=== PATIENT | female | born 1935 | race Caucasian/White ===

== ENCOUNTER 2016-12-15 17:24 | Emergency (ER) | payer MEDICARE, MEDICAID ==
[~2016-12-15] VITALS: Ht 172.7 cm; Wt 75.0 kg
[2016-12-15 17:27] VITALS: BP 159/77; PULSE 81; RESP 16; TEMP 98.2; O2SAT 98
[2016-12-15 18:57] LABS: HEMATOCRIT 38.5 % (35.0-46.0); MEAN CELL VOLUME 96.9 FL (80.0-100.0); MEAN CORPUSCULAR HEMOGLOBIN 31.5 PG (27.0-34.0); MEAN CORPUSCULAR HGB CONC 32.5 % (32.0-36.0); PLATELET COUNT 219 TH/MM3 (150-450); RED BLOOD COUNT 3.97 MIL/MM3 (4.00-5.30); REVIEW FLAG FINAL; WHITE BLOOD COUNT 6.5 TH/MM3 (4.0-11.0)
[2016-12-15 19:18] LABS: PROTHROMBIN TIME - PATIENT 11.2 SEC (9.8-11.6)
[2016-12-15 20:14] LABS: BICARBONATE 29.1 MEQ/L (21.0-32.0); POTASSIUM 3.9 MEQ/L (3.5-5.1)
--- NOTE | 2016-12-15 21:55 | PD ---
HPI Chief Complaint: Abnormal Results Time Seen by Provider: 21:08 Travel History International Travel<30 days: No Contact w/Intl Traveler<30days: No Traveled to known affect area: No History of Present Illness HPI 81-year-old female sent in by her primary care physician's office after nurse practitioner ordered a bilateral lower extremity duplex which shows nonocclusive DVTs to both lower extremities. 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 She is not on any anticoagulation. She has been having lower extremity pain and swelling bilaterally for last couple of months. She denies chest pain or dyspnea. No trauma. No melena or hematochezia. PFSH Social History Tobacco Use: Yes Allergies-Medications (Allergen,Severity, Reaction): Coded Allergies: No Known Allergies (Unverified , 12/15/16) Reported Meds & Prescriptions Reported Meds & Active Scripts Active Xarelto (Rivaroxaban) 20 Mg Tab 20 Mg PO DAILY 30 Days Xarelto (Rivaroxaban) 15 Mg Tab 15 Mg PO Q12HR 21 Days Reported Xeljanz Xr (Tofacitinib ER) 11 Mg Tab 11 Mg PO DAILY Proair Hfa 8.5 GM Inh (Albuterol Sulfate) 90 Mcg/Act Aer 1-2 Puff INH QID PRN 108 mcg/actuation Percocet (Oxycodone-Acetaminophen) 7.5-325 mg Tab 1 Tab PO Q6-8HR PRN Aspir-81 (Aspirin) 81 Mg Tabdr 81 Mg PO DAILY Atorvastatin (Atorvastatin Calcium) 10 Mg Tab 10 Mg PO HS Gabapentin 300 Mg Cap 300 Mg PO HS Review of Systems Except as stated in HPI: all other systems reviewed are Neg Physical Exam Narrative GENERAL: Well-developed, well-nourished, comfortable, no acute distress. SKIN: Focused skin assessment warm/dry. HEAD: Atraumatic. Normocephalic. EYES: Pupils equal and round. No scleral icterus. No injection or drainage. ENT: Mucous membranes pink and moist. NECK: Trachea midline. No JVD. CARDIOVASCULAR: Regular rate and rhythm. RESPIRATORY: No accessory muscle use. Clear to auscultation. Breath sounds equal bilaterally. GASTROINTESTINAL: Abdomen soft, non-tender, nondistended. MUSCULOSKELETAL: No obvious deformities. No clubbing. No cyanosis. Bilateral calves are tender with mild edema. NEUROLOGICAL: Awake and alert. No obvious cranial nerve deficits. Motor grossly within normal limits. Normal speech. PSYCHIATRIC: Appropriate mood and affect; insight and judgment normal. Data Data Last Documented VS Vital Signs Date Time Temp Pulse Resp B/P Pulse Ox O2 Delivery O2 Flow Rate FiO2 12/15/16 22:00 76 18 156/81 96 Room Air 12/15/16 17:27 98.2 Orders Cbc No Diff, Includes Plts (12/15/16 18:06) Basic Metabolic Panel (Bmp) (12/15/16 18:06) Prothrombin Time / Inr (Pt) (12/15/16 18:06) Act Partial Throm Time (Ptt) (12/15/16 18:06) Rivaroxaban (Xarelto) (12/15/16 22:00) Labs Laboratory Tests Test 12/15/16 18:31 White Blood Count 6.5 TH/MM3 Red Blood Count 3.97 MIL/MM3 Hemoglobin 12.5 GM/DL Hematocrit 38.5 % Mean Corpuscular Volume 96.9 FL Mean Corpuscular Hemoglobin 31.5 PG Mean Corpuscular Hemoglobin 32.5 % Concent Red Cell Distribution Width 16.0 % Platelet Count 219 TH/MM3 Mean Platelet Volume 9.5 FL Prothrombin Time 11.2 SEC Prothromb Time International 1.0 RATIO Ratio Activated Partial 21.0 SEC Thromboplast Time Sodium Level 142 MEQ/L Potassium Level 3.9 MEQ/L Chloride Level 106 MEQ/L Carbon Dioxide Level 29.1 MEQ/L Anion Gap 7 MEQ/L Blood Urea Nitrogen 16 MG/DL Creatinine 1.12 MG/DL Estimat Glomerular Filtration 47 ML/MIN Rate Random Glucose 120 MG/DL Calcium Level 9.0 MG/DL [facility] Medical Decision Making Medical Screen Exam Complete: Yes Emergency Medical Condition: Yes Differential Diagnosis Bilateral DVTs Narrative Course Bilateral lower extremity duplex report obtained from [place] [facility] shows nonocclusive DVTs in both lower extremities. Patient was made aware of this finding. I discussed anticoagulation options with the patient including heparin /Lovenox bridging to Coumadin as well as the novel oral anticoagulants. Patient prefers novel oral anticoagulants. Her stool is heme negative and brown. She will be started on Xarelto. I attempted to call the patient's primary care physician Dr. Otoole, however I was unable to contact with him. Patient instructed to follow-up with him this week. She was informed on when to return to the emergency department. The patient and the patient's son verbalizes understanding and agreement with plan. [facility] Point of Care Internal Pos. & Neg. Controls: Passed Fecal Specimen Occult Blood: Negative Diagnosis Primary Impression: DVT, bilateral lower limbs Qualified Code: I82.403 - Deep vein thrombosis (DVT) of both lower extremities , unspecified chronicity, unspecified vein Referrals: Primary Care Physician 3 days Additional Instructions: Follow-up with your primary care physician this week. Return to the emergency department for worsening symptoms or any other concerns. Scripts Rivaroxaban (Xarelto)20 Mg Tab20 Mg PO DAILY 30 Days Ref 0 Prov:Yeyo Roberto MD 12/15/16 Rivaroxaban (Xarelto)15 Mg Tab15 Mg PO Q12HR 21 Days Ref 0 Prov:Yeyo Roberto MD 12/15/16 Disposition: 01 DISCHARGE HOME Condition: Stable Yeyo Roberto MD Dec 15, 2016 21:55
[2016-12-15] MEDS ORDERED: XARE15TA PO (21:57)
[2016-12-15] MEDS ORDERED: XARE20TA PO (21:57)
[2016-12-15 22:00] VITALS: BP 156/81; PULSE 76; RESP 18; O2SAT 96
[2016-12-15] MEDS ORDERED: RIVAROXABAN 15 MG TAB PO ONE (22:00)
[2016-12-15] MEDS ORDERED: ASPI81TA81 PO (22:07)
[2016-12-15] MEDS ORDERED: GABA300C5 PO (22:07)
[2016-12-15] MEDS ORDERED: ATOR10TA15 PO (22:07)
[2016-12-15] MEDS ORDERED: TOFA1TAB PO (22:07)
[2016-12-15] MEDS ORDERED: ALBUAER3 INH (22:07)
[2016-12-15] MEDS ORDERED: PERC7.5T13 PO (22:07)
== END 2016-12-15 23:40 | disposition home or self-care (01) ==
LOC: NEPE 17:24
DX: I82.403 Acute embolism and thrombosis of unspecified deep veins of lower extremity, bilateral (principal); Z79.01 Long term (current) use of anticoagulants
CPT/HCPCS: 80048; 85027; 85610; 85730; 99284